=== PATIENT | female | born 1990 | race Caucasian/White ===

== ENCOUNTER 2019-10-14 08:57 | Emergency (ER) | payer SELFPAY ==
[2019-10-14 09:01] VITALS: BP 130/67; PULSE 84; TEMP 98.6; BMI 20.9
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
== END 2019-10-14 09:47 | disposition home or self-care (01) ==
LOC: JER 08:57
DX: V87.7XXA Person injured in collision between other specified motor vehicles (traffic), initial encounter (principal)
CPT/HCPCS: 99282-25